=== PATIENT | male | born 1970 | race Two or more races ===

== ENCOUNTER 2025-06-14 08:36 | Outpatient (CLI) | payer MEDICARE, MEDICAID ==
[~2025-06-14 08:36] MED LIST: NO HOME MEDS
--- NOTE | 2025-06-14 11:39 | RADIOLOGY REPORT ---
CLINICAL HISTORY: Worsening wounds with purulent drainage deep to muscle. Increased pain, suspiciou s for abscess and osteomyelitis. TECHNIQUE: Multi sequence multi planar MRI images of the pelvis were obtained without IV contrast. U lindseyle to start IV for contrast injection. COMPARISON: Radiographs dated 03/10/2025. FINDINGS: Motion artifact limits evaluation. Examination is also limited due to lack of postcontrast imaging. There is a wound at the left posterior subcutaneous tissues overlying the left gluteus maxi mus muscle, measuring up to 3.5 cm in greatest dimension with adjacent subcutaneous edema, likely eron lulitis in the appropriate clinical setting. There is T2 hyperintense signal slightly deep to the wou nd, possible phlegmon, measuring up to 3.6 cm, possible phlegmon extending adjacent to the medial sup erior aspect of the gluteus pj muscle and abutting the posterior aspect of the left iliac bone. Abscess not excluded in the appropriate clinical setting. Limited evaluation for abscess on noncontr ast enhanced MRI. Mild intramuscular edema in the left gluteus pj muscle, which appears edematou s and thickened compared to the contralateral right side, possible myositis. No marrow signal abnorma lity identified to suggest osteomyelitis. There is a smaller wound in the right inferior gluteal region below the level of the ischial tuberosi ty measuring up to approximately 2.8 cm with mild adjacent subcutaneous edema, possible cellulitis in the appropriate clinical setting. No organized fluid collection in this location to suggest abscess. No adjacent marrow signal abnormality to suggest osteomyelitis. Small wound along the lateral aspect of the right hip near the level of the greater trochanter measuring up to 1.2 cm with mild adjacent subcutaneous edema, possible cellulitis. No organized fluid collection identified in this location to suggest abscess. No evidence for osteomyelitis near this location. 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 Mild patchy areas of t2/stir hyperintens e signal in the femoral heads bilaterally and extending to the right femoral neck, may be due to stre ss related changes/stress injury in the appropriate clinical setting. No significant joint effusion. Mild intramuscular edema in the bilateral adductor musculature, right greater than left and including the right obturator externus muscle, may be seen with strain, nonspecific is ovoid T2 hyperintense s tructure in the left perineal soft tissues measuring up to 1.5 cm in close proximity to the skin surf spencer, possible sebaceous cyst or other cyst. IMPRESSION: 1. Multiple wounds are seen in the pelvic soft tissues as detailed above, with the largest wound seen posterior to the left gluteus pj muscle demonstrating adjacent soft tissue inflammatory changes , likely cellulitis in the appropriate clinical setting. Focal T2 hyperintense ovoid structure abutti ng the medial aspect of the left gluteus pj muscle and posterior aspect of the left iliac bone, possible phlegmon. Abscess not excluded. Limited evaluation for abscess without postcontrast imagin g. 2. Milder soft tissue inflammatory changes are seen associated with the wound in the right gluteal re gion and in the wound adjacent to the right greater trochanter. 3. Intramuscular edema and swelling of the left gluteus pj muscle, possible myositis given the a djacent soft tissue inflammatory changes. 4. Intramuscular edema in the adductor musculature bilaterally, right greater than left may be seen w ith myositis, strain, or acute/ subacute denervation. 5. Small ovoid T2 hyperintense structure in the left perineal soft tissues, possible sebaceous cyst o r other cyst. Correlate with clinical findings. 6. Arthritic changes in both hips as described above. Areas of patchy marrow edema in both femoral he ads and in the right femoral neck, possible stress related changes/stress injury in the appropriate c linical setting.
== END 2025-06-14 23:59 | disposition home or self-care (01) ==
LOC: MRI02 08:36
PROVIDERS: ATTEND Emergency Medicine
DX: S31.829A Unspecified open wound of left buttock, initial encounter (principal); L89.314 Pressure ulcer of right buttock, stage 4; M16.0 Bilateral primary osteoarthritis of hip; R60.0 Localized edema; R19.09 Other intra-abdominal and pelvic swelling, mass and lump; X58.XXXA Exposure to other specified factors, initial encounter; Y93.89 Activity, other specified; Y92.89 Other specified places as the place of occurrence of the external cause; Y99.8 Other external cause status
CPT/HCPCS: 72195